=== PATIENT | female | born 1980 | race Caucasian/White ===

== ENCOUNTER 2016-05-28 12:57 | Emergency (ER) | payer OTHER | END 2016-05-28 13:25 | disposition home or self-care (01) | LOC: ER 12:57 | DX: S63.502A Unspecified sprain of left wrist, initial encounter (principal); X50.0XXA Overexertion from strenuous movement or load, initial encounter; Y92.009 Unspecified place in unspecified non-institutional (private) residence as the place of occurrence of the external cause; F17.210 Nicotine dependence, cigarettes, uncomplicated; Z98.51 Tubal ligation status; G43.909 Migraine, unspecified, not intractable, without status migrainosus; Z88.5 Allergy status to narcotic agent; Z88.8 Allergy status to other drugs, medicaments and biological substances | CPT/HCPCS: 73110; 99283 ==